=== PATIENT | female | born 2000 ===

== ENCOUNTER 2021-06-02 14:31 | Emergency (ER) | payer MEDICAID ==
[~2021-06-02] VITALS: Ht 152.4 cm; Wt 75.0 kg
[2021-06-02 14:54] VITALS: BP 124/82
[2021-06-02 16:11] LABS: ALBUMIN 3.9 g/dL (3.4-5.0); ANION GAP 6 mmol/L (5-15); CALCIUM 9.1 mg/dL (8.5-10.1); CHLORIDE 105 mmol/L (98-107); CREATININE 0.75 mg/dL (0.55-1.02)
[2021-06-02 16:14] LABS: BASOPHILS % (AUTO) 1 % (0-1); EOSINOPHILS % (AUTO) 1 % (1-7); LYMPHOCYTES % (AUTO) 20 % (22-44); MEAN CORPUSCULAR HEMOGLOBIN 27.8 pg (27.0-34.8); MEAN CORPUSCULAR HGB CONC 33.1 g/dL (32.4-35.8); MONOCYTES % (AUTO) 6 % (2-9); NEUTROPHILS % (AUTO) 73 % (42-75); PLATELET COUNT 422 x10^3/uL (130-400); RED BLOOD COUNT 4.64 x10^6/uL (3.82-5.3); RED CELL DISTRIBUTION WIDTH 14.6 % (9.6-15.2)
--- NOTE | 2021-06-02 18:00 | NUR ---
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
--- NOTE | 2021-06-02 18:13 | NUR ---
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
--- NOTE | 2021-06-02 18:23 | NUR ---
SALESPERSON BURIAL NEEDS: CALLED FOR ROOM, NO ANSWER
== END 2021-06-02 18:25 | disposition left against medical advice (07) ==
LOC: ED 18:00
DX: R51.9 Headache, unspecified (principal); R20.2 Paresthesia of skin; R06.02 Shortness of breath; R11.0 Nausea; R94.31 Abnormal electrocardiogram [ECG] [EKG]; R07.9 Chest pain, unspecified
CPT/HCPCS: 36415; 71045; 80048; 82040; 84703; 85025; 93005; 99285